=== PATIENT | female | born 1965 | race Caucasian/White ===

== ENCOUNTER → 2018-04-02 16:16 | Outpatient (CLI) | payer OTHER, SELFPAY ==
--- NOTE | 2018-04-02 16:20 | VDLE_ITS ---
Reason For Study: LLE swelling RIGHT LEFT CFV is compressible, spontaneous, phasic, GSV is normal. competent and demonstrates normal CFV is compressible, spontaneous, phasic, augmentation. competent, and demonstrates normal Procedure augmentation. Exam performed in department. FV is compressible, spontaneous, phasic, The exam was diagnostic. competent and demonstrates normal A preliminary report was called and/or faxed augmentation. to Ene MALLOYC @ 4:40 pm @ POP V is compressible, spontaneous, phasic, . competent and demonstrates normal augmentation. T/P Trunk is compressible. PTV is compressible. LT PerV is compressible. Interpretation Summary Deep veins of the left lower extremity are patent and compressible segmentally. There is no evidence of left lower extremity deep vein thrombosis. Valvular competence appears intact within the proximal deep venous system on the left . The left greater saphenous vein appears patent and compressible segmentally. Ordering Physician: BRYAN Mckeon Referring Physician: Bette Cho Performed By: Sera Elliott, EUGENIA, RVT
== END ==
PROVIDERS: Family Provider Internal Medicine; PCP Internal Medicine; Visit Provider Nurse Practitioner Gerontology
DX: M79.89 Other specified soft tissue disorders (principal)
CPT/HCPCS: 93971

== ENCOUNTER → 2018-04-27 07:32 | Outpatient (CLI) | payer OTHER, SELFPAY ==
--- NOTE | 2018-04-27 07:32 | DT_ITS ---
This patient was seen during an EMR downtime April 23, 2018 - April 30, 2018. This patient may have a combination of paper and electronic documentation or all paper documentation. All documentation is viewable within the e-chart portion of [employer] for each patient visit.
--- NOTE | 2018-04-27 07:45 | MRI_ITS ---
STUDY: MRI LOWER EXTREMITY LEFT TIBIA/FIBULA WITH AND WITHOUT CONTRAST REASON FOR EXAM: Female, 52 years old. Swelling and pain. Area of redness. TECHNIQUE: Standardized fat and water weighted pulse sequences were obtained in all 3 orthogonal planes, post contrast administration. 10 ml of Gadavist contrast material was administered intravenously for the contrast portion of the examination. COMPARISON: None. FINDINGS: Normal tibia and fibula, without a periosteal, cortical or cancellous marrow abnormality. Normal anterior, lateral, and posterior calf compartments, with normal muscles, crural fascia and intermuscular septa. There is subcutaneous edema of the lower leg. No abscess. There is no solid, cystic or lipomatous mass lesion of the subcutis adipose space. There is no abnormal contrast enhancement. MRI/Lower Ext No Joint W/WO Cont IMPRESSION: Subcutaneous edema. No MRI evidence of osteomyelitis. No fracture. Electronically Signed: Billy Diaz MD at 23:54 EDT , Service support ,
== END ==
PROVIDERS: Family Provider Internal Medicine; PCP Internal Medicine; Visit Provider Internal Medicine
DX: M79.605 Pain in left leg (principal)
CPT/HCPCS: 73720; A9585

== ENCOUNTER → 2018-05-08 07:35 | Outpatient (CLI) | payer OTHER, SELFPAY ==
--- NOTE | 2018-05-08 07:39 | NM_ITS ---
CLINICAL: 52-year-old female with reported history of pain and swelling of the left lower extremity. LIMITED 99m Tc MDP THREE PHASE BONE SCINTIGRAPHY COMPARISON: MRI of the tibia-fibula report 04/27/2018 FINDINGS: Following the intravenous administration of 24.0 mCi of 99m Tc MDP, three-phase bone acquisitions of the bilateral distal lower extremities reveal: 1. The flow and immediate static blood pool acquisitions demonstrate symmetric, normal arterial and venous phase distribution of the radiopharmaceutical to the bilateral lower extremities. There is soft tissue edema involving the left lower extremity relative to the right. 2. Delayed images depict focal increased tracer concentration demonstrated in the patellofemoral compartments of both knees, bilateral ankles, the right-left mid-forefoot. 3. The remaining limited skeletal structures are scintigraphically unremarkable. NM/Bone Scan Three Phase IMPRESSION: 1. The increase in radiopharmaceutical concentration visualized in the bilateral knee and ankle articulations, right-left mid and forefoot is most consistent with degenerative arthritis. 2. Soft tissue edema is defined in the left lower extremity relative to the right. There is no definitive scintigraphic evidence of a soft tissue inflammatory process-cellulitis and or active infection of bone-osteomyelitis involving the left lower extremity on the current examination. Electronically Signed: Jozef Ernst DO at 15:32 EDT Tel , Service support ,
== END ==
PROVIDERS: Family Provider Internal Medicine; PCP Internal Medicine; Visit Provider Internal Medicine
DX: M79.605 Pain in left leg (principal)
CPT/HCPCS: 78315

== ENCOUNTER 2018-05-29 22:34 | Emergency (ER) | payer OTHER, SELFPAY ==
[2018-05-29 22:36] VITALS: BP 135/89; PULSE 71; RESP 18; TEMP 36.6; O2SAT 99; BMI 34.6
--- NOTE | 2018-05-30 01:02 | CT_ITS ---
STUDY: CT ABDOMEN AND PELVIS WITH CONTRAST REASON FOR EXAM: Female, 52 years old. Abdominal pain and left lower extremity edema. RADIATION DOSAGE (If Supplied By Facility): CTDIvol = ( 18.30 ) mGy, DLP = ( 1277.13 ) mGycm TECHNIQUE: Transaxial images were obtained from the dome of the diaphragm to the symphysis pubis without oral contrast. 100ml ml of Isovue 300 contrast was administered. Sagittal and coronal images were reconstructed. Individualized dose optimization techniques were used for this CT. COMPARISON: 08/22/2016. FINDINGS: The visualized lung bases are unremarkable. The visualized portions of the heart are within normal limits. Normal liver. Normal gallbladder and extrahepatic biliary system. Normal spleen. Normal pancreas. Normal bilateral adrenal glands. There again are bilateral renal cysts larger on the left side. There is no evidence of hydronephrosis. Normal visualized stomach. The small bowel loops are normal in caliber. There is fecal retention. There is mild diverticulosis of the sigmoid colon. There is no evidence of acute diverticulitis. There is non-visualization of the appendix. Normal abdominal aorta. Normal inferior vena cava. Normal retroperitoneum. Normal urinary bladder. The uterus is retroverted. There is a small cyst in the right adnexa measuring about 2 cm. There is a small umbilical hernia containing fat. There are degenerative changes in the lower lumbar spine. There is minimal anterolisthesis of L4 over L5 and narrowing of L4-L5 and L5-S1 disc spaces. CT/Abdomen/Pelvis W IV Cont ONLY IMPRESSION: No demonstrated acute process. Bilateral renal cysts. Mild diverticulosis without evidence for acute diverticulitis. Electronically Signed: Avila Rivera MD at 2:21 EDT Tel , Service support ,
[2018-05-30] MEDS: Ketorolac 15 MG/ML Vial IV (01:24)
[2018-05-30 01:25] LABS: Absolute Lymphocyte Count 2.64 X10^3/ul (0.83-4.51); Absolute Neutrophil Count 2.8 X10^3/uL (2.0-7.7); Basophil# 0.03 X10^3/uL; Basophil% 0.5 % (0-1); Eosinophil# 0.14 X10^3/uL; Eosinophils% 2.3 % (0-5); Hemoglobin 13.1 g/dl (12.0-15.0); Lymphocyte # 2.64 X10^3/ul (4.0); Lymphocyte % 42.6 % (19-41); Mean Corp Hgb Conc 34.5 g/gl (32-36); Mean Corpuscular Hgb 31.3 pg (27.0-32.0); Mean Corpuscular Volume 90.9 fL (81-99); Mean Platelet Vol. 10.6 fl (6.2-12.0); Monocyte% 9.7 % (0-10); Neutrophil # 2.78 X10^3/uL (2.7-7.7); Neutrophil % 44.7 % (47-70); Platelet Count 213 K/mm3 (150-450); RBC Distribution Width CV 13.5 % (11.6-14.6); RBC Distribution Width SD 44.6 fl (35.1-43.9); Red Blood Count 4.18 M/mm3 (4.2-5.4); White Blood Count 6.2 K/mm3 (4.4-11.0)
[2018-05-30 01:28] LABS: POSITIVE COUNT NO; POSITIVE DIFFERENTIAL NO; POSITIVE MORPHOLOGY NO
[2018-05-30 01:43] LABS: Anion Gap 8 (5-15); BUN 15 mg/dL (7-18); BUN/Creat Ratio 18.1 RATIO (10-20); Calcium,Total 9.2 mg/dL (8.5-10.1); Chloride 107 mmol/L (98-107); Creatinine, Serum 0.83 mg/dL (0.55-1.02); EST Glomerular Filtration Rate 76 mL/min (>60); Est Glom Filt Rate - Afr Amer 92 mL/min (>60); Estimated Creatinine Clearance 69.72 ml/min; Glucose 93 mg/dL (74-106); Potassium 3.8 mmol/L (3.5-5.1); Sodium Level 141 mmol/L (136-145)
--- NOTE | 2018-05-30 02:58 | ED.VISSUMM ---
- ER Visit Summary Date of Service: 05/30/18 Chief Complaint: Left leg pain History of Present Illness: The patient is a 52 F presenting for evaluation secondary left leg pain. Patient reports that she has been having left leg pain over the course of the last 5 months. Patient states that this was not associated with any sort of specific injury, and states that the pain is continuous and is associated with worsening with activity standing caffeine and palpation. Patient has undergone a extensive workup by her primary care physician for this. She has undergone MRI of the leg, bone scan, and Doppler ultrasounds of both the venous and arterial systems and are found to be negative. Patient states that the pain was giving her enough difficulty was sleeping tonight she wanted to come for evaluation. Patient reports that she was referred to pain management, but prefers to go to a homeopathic physician prior to doing a pain management consultation. Physical Examination: Physical exam unremarkable except for examination the left lower extremity. Normal range of motion at the hip and knee, some limited range of motion at the ankle. There is edema going from the knee all the way down to the foot with some erythema over the anterior portion of the collado and the foot. Tenderness to palpation even to extremely light touch going from the knee down to the ankle, but not including the foot. 1+ DP and PT pulses that are bilaterally symmetric, compartments are soft. Test Results: CBC and chemistry unremarkable, CT abdomen and pelvis with IV contrast shows no evidence of large masses, does demonstrate a ovarian cyst that seems stable from a prior ultrasound Emergency Department Course and Treatment: Patient presented secondary to persistent leg pain. Patient has already had ruled out bony etiology, infection, or vascular etiology. I considered the possibility that this was caused by lymphatic obstruction due to tumor proximally so CT was performed this was negative. Patient at this point potentially has an element of complex regional pain syndrome. I had an extensive conversation with patient about medications versus other treatment. I will start the patient on a course of gabapentin she is going to follow-up with a homeopathic physician followed by a paint department supervisor. Patient was discharged in stable condition. Disposition: Discharge Impression: 1. Left leg pain, possible complex regional pain syndrome This note was generated with [employer] dictation software. It may contain incorrect words, spelling, and punctuation that were not noted in review of the chart prior to signing ED Disposition - Plan for ED Patient: Disposition: Home or Assisted Living Chief Complaint: Lower Extremity Injury Diagnosis: Complex regional pain syndrome Instructions: What Is Reflex Sympathetic Dystrophy? Prescriptions: Gabapentin [Neurontin] 300 mg PO TID #90 cap Referrals: Bette Cho DO [Primary Care Provider] - 1-2 Weeks
--- NOTE | 2018-05-30 03:02 | ED.DCSUM_ITS ---
- ER Visit Summary Date of Service: 05/30/18 Chief Complaint: Left leg pain History of Present Illness: The patient is a 52 F presenting for evaluation secondary left leg pain. Patient reports that she has been having left leg pain over the course of the last 5 months. Patient states that this was not associated with any sort of specific injury, and states that the pain is continuous and is associated with worsening with activity standing caffeine and palpation. Patient has undergone a extensive workup by her primary care physician for this. She has undergone MRI of the leg, bone scan, and Doppler ultrasounds of both the venous and arterial systems and are found to be negative. Patient states that the pain was giving her enough difficulty was sleeping tonight she wanted to come for evaluation. Patient reports that she was referred to pain management, but prefers to go to a homeopathic physician prior to doing a pain management consultation. Physical Examination: Physical exam unremarkable except for examination the left lower extremity. Normal range of motion at the hip and knee, some limited range of motion at the ankle. There is edema going from the knee all the way down to the foot with some erythema over the anterior portion of the collado and the foot. Tenderness to palpation even to extremely light touch going from the knee down to the ankle, but not including the foot. 1+ DP and PT pulses that are bilaterally symmetric, compartments are soft. Test Results: CBC and chemistry unremarkable, CT abdomen and pelvis with IV contrast shows no evidence of large masses, does demonstrate a ovarian cyst that seems stable from a prior ultrasound Emergency Department Course and Treatment: Patient presented secondary to persistent leg pain. Patient has already had ruled out bony etiology, infection , or vascular etiology. I considered the possibility that this was caused by lymphatic obstruction due to tumor proximally so CT was performed this was negative. Patient at this point potentially has an element of complex regional pain syndrome. I had an extensive conversation with patient about medications versus other treatment. I will start the patient on a course of gabapentin she is going to follow-up with a homeopathic physician followed by a paint mixer machine. Patient was discharged in stable condition. Disposition: Discharge Impression: 1. Left leg pain, possible complex regional pain syndrome This note was generated with [employer] dictation software. It may contain incorrect words, spelling, and punctuation that were not noted in review of the chart prior to signing ED Disposition - Plan for ED Patient: Disposition: Home or Assisted Living Chief Complaint: Lower Extremity Injury Diagnosis: Complex regional pain syndrome Instructions: What Is Reflex Sympathetic Dystrophy? Prescriptions: Gabapentin [Neurontin] 300 mg PO TID #90 cap Referrals: Bette Cho DO [Primary Care Provider] - 1-2 Weeks
[2018-05-30 03:19] VITALS: PULSE 81; RESP 20; O2SAT 98
--- NOTE | 2018-05-30 03:20 | ED.RN ---
THIS NURSE REVIEWED D/C INSTRUCTIONS WITH PT. PT VERBALIZED UNDERSTANDING OF INSTRUCTIONS. IV D/C. IV CATHETER INTACT. PT TOLERATED WELL. PT DENIES FURTHER NEEDS OR QUESTIONS AT THIS TIME. PT AMBULATES FROM ROOM ON OWN WITHOUT ASSISTANCE FROM STAFF
== END 2018-05-30 03:22 | disposition home or self-care (01) ==
PROVIDERS: Emergency Provider Emergency Medicine; Family Provider Internal Medicine; PCP Internal Medicine
DX: M79.605 Pain in left leg (principal); R20.2 Paresthesia of skin
CPT/HCPCS: 74177; 80048; 85025; 96374; 99283; Q9967; A4216

== ENCOUNTER → 2023-06-02 | Outpatient (CLI) | payer OTHER, SELFPAY ==
[2023-06-02 17:54] LABS: Absolute Lymphocyte Count 2.01 X10^3/uL (0.83-4.51); Absolute Neutrophil Count 3.1 X10^3/uL (2.0-7.7); Basophil# 0.07 X10^3/uL; Basophil% 1.2 % (0-1); Eosinophil# 0.21 X10^3/uL; Eosinophils% 3.6 % (0-5); Hematocrit 40.2 % (37-47); Lymphocyte # 2.01 X10^3/ul (0.83-4.51); Lymphocyte % 34.3 % (19-41); Mean Corp Hgb Conc 32.3 g/dL (32-36); Mean Corpuscular Volume 92.8 fL (81-99); Mean Platelet Vol. 10.9 fl (6.2-12.0); Monocyte# 0.44 X10^3/uL; Monocyte% 7.5 % (0-10); NRBC Flagged by Analyzer 0 % (0-5); Neutrophil # 3.12 X10^3/uL (2.7-7.7); Neutrophil % 53.2 % (47-70); Platelet Count 261 K/mm3 (150-450); RBC Distribution Width CV 13.2 % (11.6-14.6); RBC Distribution Width SD 44.7 fl (35.1-43.9); Red Blood Count 4.33 M/mm3 (4.2-5.4); White Blood Count 5.9 K/mm3 (4.4-11.0)
[2023-06-02 18:13] LABS: ALB/GLOB Ratio 1.1 RATIO (0.9-2.4); AST(SGOT) 23 U/L (15-37); Alanine Aminotransfer ALT/SGPT 28 U/L (13-56); Albumin, Serum 3.8 g/dL (3.2-5.0); Alkaline Phosphatase 116 U/L (45-117); Anion Gap 3 (5-15); BUN 12 mg/dL (7-18); BUN/Creat Ratio 14.5 RATIO (10-20); Calcium,Total 9.1 mg/dL (8.5-10.1); Chloride 110 mmol/L (98-107); Cholesterol 167 mg/dL (200); Creatinine, Serum 0.83 mg/dL (0.55-1.02); EST Glomerular Filtration Rate 75 mL/min (>60); Est Glom Filt Rate - Afr Amer 90 mL/min (>60); Globulin 3.6 g/dL (2.2-4.2); Glucose 88 mg/dL (74-106); High Density Lipoprotein 56 mg/dL; Potassium 3.7 mmol/L (3.5-5.1); Protein, Total 7.4 g/dL (6.4-8.2); Sodium Level 141 mmol/L (136-145); Thyroid Stim Hormone (TSH) 1.57 uIU/mL (0.358-3.74); Triglycerides 89 mg/dL; Very Low Density Lipoprotein 18 mg/dL (5-40)
[2023-06-02 18:16] LABS: Vitamin D,25 Hydroxy 50.2 ng/mL
== END | disposition home or self-care (01) ==
LOC: MTLAB 15:57
PROVIDERS: PCP Family Medicine; Referring Provider Family Medicine; Visit Provider Family Medicine
DX: R60.9 Edema, unspecified (principal)
CPT/HCPCS: 36415; 80053; 80061; 82306; 84443; 85025

== ENCOUNTER → 2025-05-02 | Outpatient (CLI) | payer OTHER, SELFPAY ==
[2025-05-07 17:08] LABS: Alternaria alternata <0.10 kU/L (Class 0); Aspergillus fumigatus <0.10 kU/L (Class 0); Bahia Grass <0.10 kU/L (Class 0); Bermuda Grass <0.10 kU/L (Class 0); Bluegrass, Kentucky <0.10 kU/L (Class 0); Cat Hair/Dander, Standard <0.10 kU/L (Class 0); Cedar, Mountain <0.10 kU/L (Class 0); Cladosporium herbarum <0.10 kU/L (Class 0); Cockroach, American <0.10 kU/L (Class 0); D farinae Mite <0.10 kU/L (Class 0); D pteronyssinus <0.10 kU/L (Class 0); Dog Epithelia <0.10 kU/L (Class 0); Elm, American White <0.10 kU/L (Class 0); Hazelnut Tree <0.10 kU/L (Class 0); Hickory, White <0.10 kU/L (Class 0); Johnson Grass <0.10 kU/L (Class 0); Maple/Box Elder <0.10 kU/L (Class 0); Mucor racemosus <0.10 kU/L (Class 0); Mugwort <0.10 kU/L (Class 0); Mulberry, White <0.10 kU/L (Class 0); Nettle <0.10 kU/L (Class 0); Oak, White <0.10 kU/L (Class 0); Penicillium chrysogen <0.10 kU/L (Class 0); Pigweed, Rough <0.10 kU/L (Class 0); Plantain, English <0.10 kU/L (Class 0); Ragweed, Short/Common <0.10 kU/L (Class 0); Sheep Sorrel(Dock) <0.10 kU/L (Class 0); Stemphylium herbarum <0.10 kU/L (Class 0); Sweet Gum <0.10 kU/L (Class 0); Sycamore, American <0.10 kU/L (Class 0)
== END | disposition home or self-care (01) ==
LOC: LAB 17:14
PROVIDERS: PCP Family Medicine; Referring Provider Family Medicine; Visit Provider Family Medicine
DX: L20.9 Atopic dermatitis, unspecified (principal)
CPT/HCPCS: 36415; 86003

== ENCOUNTER → 2025-07-05 | Outpatient (CLI) | payer OTHER, SELFPAY ==
--- OUTSIDE RECORDS SUMMARY | 2025-07-05 09:58 | XMS RPT_ITS | CCD ---
Author Organization [facility] Inform ion Partnership [facility] Care Team Providers Care Teaching Aide Name Role Phone Luke Tavares MD Primary Care Provider [phone] Luke Tavares MD Attending Provider [phone] Luke Tavares MD Referring Provider Luke Tavares Referring Unavailable Luke Tavares Attending Unavailable Luke Tavares Primary Care Unavailable Luke Tavares Primary Care Unavailable Shanna Huff Attending Unavailable Luke Tavares Referring Unavailable Allergies Allergy Classification Reported Allergen(s) Allergy Type Date of Onset Reaction(s) Facility (2 sources) Tetracycline Drug Allergy 05-29-2018 Nausea [facility] (1 source) Tetracycline Drug Allergy 05-29-2018 [facility] Repository Medications Current Medications Medication Drug Class(es) Dates Sig (Normalized) Sig (Original) gabapentin 300 mg oral capsule (2 sources) Anti-epileptic Agent Start: 05-30-2018 Gabapentin 300 MG capsule Active 300 mg PO THREE TIMES A DAY 90 May 30, 2018 12:00am Start 1 capsule on day one, then 1 capsule BID day 2, then 1 capsule TID day. Continue on 1 capsule TID Problems Problem Classification Problem Date Documented Da te Episodic/Chronic Allergic reactions (1 source) Atopic dermatitis, unspecified; Translations: [Atopic dermatitis, unspecified] Onset: 05-08-2025 Chronic Other nervous system disorders (2 sources) Complex regional pain syndrome; Translations: [Complex regional pain syndrome] 05-31-2018 Chronic Results Test Name Value Interpretation Reference Range Facility Allergens, Zone 8on 05-07-20 25 A. ALTERNATA <0.10 Normal Class 0 [facility] Comment on above: Order Comment: Test( s) 336269-S161-SyN Cockroach, Hungarian; 877294- U034-JdR Deaf Smith, White; 790888-F812-HkS Sweet Gum were developed and had performance characteristics determined by [facility]. These tests have not been cleared or approved by the U.S. Food and Drug Administration. The FDA has determined that such clearance or approval is not necessary. These tests are used for clinical purposes. These should not be regarded as investigational or for research. Performed By: #### L 5500.0600 #### [facility] [address] [place], [address] ASPERGILLUS FUM <0.10 Normal Class 0 [facility] Comment on above: Order Comment: Test( s) 040955-Z062-OnV Cockroach, Hungarian; 970748- J765-HbG Deaf [place], White; 818199-A380-XxN Sweet Gum were developed and had performance characteristics determined by [facility]. These tests have not been cleared or approved by the U.S. Food and Drug Administration. The FDA has determined that such clearance or approval is not necessary. These tests are used for clinical purposes. These should not be regarded as investigational or for research. Performed By: #### L 5500.0600 #### [facility] [address] [place], [address] BAHIA GRASS <0.10 Normal Class 0 [facility] Comment on above: Order Comment: Test( s) 936749-S277-TkO Cockroach, Hungarian; 831290- G187-RhM Deaf [place], White; 114757-S416-VlM Sweet Gum were developed and had performance characteristics determined by [facility]. These tests have not been cleared or approved by the U.S. Food and Drug Administration. The FDA has determined that such clearance or approval is not necessary. These tests are used for clinical purposes. These should not be regarded as investigational or for research. Performed By: #### L 5500.0600 #### [facility] [address] [place], [address] BERMUDA GRASS <0.10 Normal Class 0 [facility] Comment on above: Order Comment: Test( s) 428071-D755-WpI Cockroach, Hungarian; 913556- X289-IxN Deaf [place], White; 120575-B194-OyS Sweet Gum were developed and had performance characteristics determined by [facility]. These tests have not been cleared or approved by the U.S. Food and Drug Administration. The FDA has determined that such clearance or approval is not necessary. These tests are used for clinical purposes. These should not be regarded as investigational or for research. Performed By: #### L 5500.0600 #### [facility] [address] [place], [address] BL[place], [place] <0.10 Normal Class 0 [facility] Comment on above: Order Comment: Test( s) 682462-V755-GtG Cockroach, Hungarian; 085435- Z518-VqK Deaf Smith, White; 709152-Q266-GwT Sweet Gum were developed and had performance characteristics determined by [facility]. These tests have not been cleared or approved by the U.S. Food and Drug Administration. The FDA has determined that such clearance or approval is not necessary. These tests are used for clinical purposes. These should not be regarded as investigational or for research. Performed By: #### L 5500.0600 #### [facility] [address] [place], [address] CAT HAIR/DANDER <0.10 Normal Class 0 [facility] Comment on above: Order Comment: Test( s) 393481-U510-TaY Cockroach, Hungarian; 881551- X591-HjS Deaf [place], White; 777741-T214-QvX Sweet Gum were developed and had performance characteristics determined by [facility]. These tests have not been cleared or approved by the U.S. Food and Drug Administration. The FDA has determined that such clearance or approval is not necessary. These tests are used for clinical purposes. These should not be regarded as investigational or for research. Performed By: #### L 5500.0600 #### [facility] [address] [place], [address] CLADOSPOR HERB <0.10 Normal Class 0 [facility] Comment on above: Order Comment: Test( s) 930766-V168-CoP Cockroach, Hungarian; 073896- X070-TkT Deaf [place], White; 816112-E112-XeI Sweet Gum were developed and had performance characteristics determined by [facility]. These tests have not been cleared or approved by the U.S. Food and Drug Administration. The FDA has determined that such clearance or approval is not necessary. These tests are used for clinical purposes. These should not be regarded as investigational or for research. Performed By: #### L 5500.0600 #### [facility] [address] [place], [place], [id number] COCKROACH,AMER <0.10 Normal Class 0 [facility] Comment on above: Order Comment: Test( s) 044401-T160-HwZ Cockroach, Hungarian; 262093- O565-KmR Deaf [place], White; 472084-H631-HrN Sweet Gum were developed and had performance characteristics determined by [facility]. These tests have not been cleared or approved by the U.S. Food and Drug Administration. The FDA has determined that such clearance or approval is not necessary. These tests are used for clinical purposes. These should not be regarded as investigational or for research. Performed By: #### L 5500.0600 #### [facility] [address] [place], [place], [id number] COMMENT Comment Normal . [facility] Comment on above: Order Comment: Test( s) 225844-N499-WiH Cockroach, Hungarian; 133724- D974-WnM Deaf Smith, White; 779600-T368-DxR Sweet Gum were developed and had performance characteristics determined by [facility]. These tests have not been cleared or approved by the U.S. Food and Drug Administration. The FDA has determined that such clearance or approval is not necessary. These tests are used for clinical purposes. These should not be regarded as investigational or for research. Result Comment: Chuyita holt of Specific IgE Class Description of Class ----- < 0.10 0 Negative 0.10 - 0.31 0/I Equivocal/Low 0.32 - 0.55 I Low 0.56 - 1.40 II Moderate 1.41 - 3.90 III High 3.91 - 19.00 IV Very High 19.01 - 100.00 V Very High >100.00 Very High Performed By: #### L 5500.0600 #### [facility] [address] [place], [place], [id number] (647) D FARINAE MITE <0.10 Normal Class 0 [facility] Comment on above: Order Comment: Test( s) 744956-Y896-OnD Cockroach, Hungarian; 030984- F068-ZtY Deaf [place], White; 992275-W789-IcL Sweet Gum were developed and had performance characteristics determined by [facility]. These tests have not been cleared or approved by the U.S. Food and Drug Administration. The FDA has determined that such clearance or approval is not necessary. These tests are used for clinical purposes. These should not be regarded as investigational or for research. Performed By: #### L 5500.0600 #### [facility] [address] [place], [address] (471) D PTERONYSSINUS <0.10 Normal Class 0 [facility] Comment on above: Order Comment: Test( s) 772437-H999-ZnG Cockroach, Hungarian; 653771- K219-BgX Deaf Smith, White; 330939-Y393-FyV Sweet Gum were developed and had performance characteristics determined by [facility]. These tests have not been cleared or approved by the U.S. Food and Drug Administration. The FDA has determined that such clearance or approval is not necessary. These tests are used for clinical purposes. These should not be regarded as investigational or for research. Performed By: #### L 5500.0600 #### [facility] [address] [place], [address] DOG EPITHELIA <0.10 Normal Class 0 [facility] Comment on above: Order Comment: Test( s) 079522-O273-PjU Cockroach, Hungarian; 591727- A914-JxX Deaf Smith, White; 026953-U278-RjE Sweet Gum were developed and had performance characteristics determined by [facility]. These tests have not been cleared or approved by the U.S. Food and Drug Administration. The FDA has determined that such clearance or approval is not necessary. These tests are used for clinical purposes. These should not be regarded as investigational or for research. Performed By: #### L 5500.0600 #### [facility] [address] [place], [address] ELM,AMER WHITE <0.10 Normal Class 0 [facility] Comment on above: Order Comment: Test( s) 338273-Y919-JrS Cockroach, Hungarian; 622710- W818-WrM Deaf Smith, White; 212956-G793-RsU Sweet Gum were developed and had performance characteristics determined by [facility]. These tests have not been cleared or approved by the U.S. Food and Drug Administration. The FDA has determined that such clearance or approval is not necessary. These tests are used for clinical purposes. These should not be regarded as investigational or for research. Performed By: #### L 5500.0600 #### [facility] [address] [place], [place], [id number] HAZELNUT TREE <0.10 Normal Class 0 [facility] Comment on above: Order Comment: Test( s) 114113-G516-AhR Cockroach, Hungarian; 855603- X490-JtP Deaf [place], White; 800636-E886-UnW Sweet Gum were developed and had performance characteristics determined by [facility]. These tests have not been cleared or approved by the U.S. Food and Drug Administration. The FDA has determined that such clearance or approval is not necessary. These tests are used for clinical purposes. These should not be regarded as investigational or for research. Performed By: #### L 5500.0600 #### [facility] [address] [place], [address] HICKORY, WHITE <0.10 Normal Class 0 [facility] Comment on above: Order Comment: Test( s) 860928-W513-ZmW Cockroach, Hungarian; 358871- M969-OmA Deaf Smith, White; 226992-Z614-ZeW Sweet Gum were developed and had performance characteristics determined by [facility]. These tests have not been cleared or approved by the U.S. Food and Drug Administration. The FDA has determined that such clearance or approval is not necessary. These tests are used for clinical purposes. These should not be regarded as investigational or for research. Performed By: #### L 5500.0600 #### [facility] [address] [place], [place], [id number] (737) DEREK GRASS <0.10 Normal Class 0 [facility] Comment on above: Order Comment: Test( s) 841108-I696-UrF Cockroach, Hungarian; 149913- G584-IaX Deaf Smith, White; 046467-A107-ChI Sweet Gum were developed and had performance characteristics determined by [facility]. These tests have not been cleared or approved by the U.S. Food and Drug Administration. The FDA has determined that such clearance or approval is not necessary. These tests are used for clinical purposes. These should not be regarded as investigational or for research. Performed By: #### L 5500.0600 #### [facility] [address] [place], [place], [id number] MAPLE/BOX ELDER <0.10 Normal Class 0 [facility] Comment on above: Order Comment: Test( s) 471407-B316-ZyK Cockroach, Hungarian; 051786- E475-HbD Deaf Smith, White; 414597-A952-HrQ Sweet Gum were developed and had performance characteristics determined by [facility]. These tests have not been cleared or approved by the U.S. Food and Drug Administration. The FDA has determined that such clearance or approval is not necessary. These tests are used for clinical purposes. These should not be regarded as investigational or for research. Performed By: #### L 5500.0600 #### [facility] [address] [place], [address] MOUNTAIN CEDAR <0.10 Normal Class 0 [facility] Comment on above: Order Comment: Test( s) 284270-N532-QzD Cockroach, Hungarian; 692611- O735-OcM Deaf Smith, White; 012819-D583-BvD Sweet Gum were developed and had performance characteristics determined by [facility]. These tests have not been cleared or approved by the U.S. Food and Drug Administration. The FDA has determined that such clearance or approval is not necessary. These tests are used for clinical purposes. These should not be regarded as investigational or for research. Performed By: #### L 5500.0600 #### [facility] [address] [facility] [address] MUCOR RACEMOSUS <0.10 Normal Class 0 [facility] Comment on above: Order Comment: Test( s) 354451-I311-HpY Cockroach, Hungarian; 876047- F200-YgR Deaf [place], White; 925158-B573-GgU Sweet Gum were developed and had performance characteristics determined by [facility]. These tests have not been cleared or approved by the U.S. Food and Drug Administration. The FDA has determined that such clearance or approval is not necessary. These tests are used for clinical purposes. These should not be regarded as investigational or for research. Performed By: #### L 0.0600 #### [facility] [address] [place], [address] MUGWORT <0.10 Normal Class 0 [facility] Comment on above: Order Comment: Test( s) 260499-F748-OsN Cockroach, Hungarian; 516373- J915-QcB Deaf [place], White; 687774-E545-TwD Sweet Gum were developed and had performance characteristics determined by [facility]. These tests have not been cleared or approved by the U.S. Food and Drug Administration. The FDA has determined that such clearance or approval is not necessary. These tests are used for clinical purposes. These should not be regarded as investigational or for research. Performed By: #### L 0.0600 #### [facility] [address] [place], [place], [address] MULBERRY, WHITE <0.10 Normal Class 0 [facility] Comment on above: Order Comment: Test( s) 099878-R485-WvY Cockroach, Hungarian; 795419- B177-TgA Deaf Smith, White; 764070-R869-BhG Sweet Gum were developed and had performance characteristics determined by [facility]. These tests have not been cleared or approved by the U.S. Food and Drug Administration. The FDA has determined that such clearance or approval is not necessary. These tests are used for clinical purposes. These should not be regarded as investigational or for research. Performed By: #### L 5500.0600 #### [facility] [address] [facility] [place], [address] NETTLE <0.10 Normal Class 0 [facility] Comment on above: Order Comment: Test( s) 390593-C934-AkY Cockroach, Hungarian; 879011- Y256-AbD Deaf Smith, White; 363610-J043-IvD Sweet Gum were developed and had performance characteristics determined by [facility]. These tests have not been cleared or approved by the U.S. Food and Drug Administration. The FDA has determined that such clearance or approval is not necessary. These tests are used for clinical purposes. These should not be regarded as investigational or for research. Result Comment: Perf ormed at: [facility] [id number] Operating Room Tech: Diane Guillen MD, Phone: [phone] Performed By: #### L 5500.0600 #### [facility] [address] [place], [place], [id number] OAK, WHITE <0.10 Normal Class 0 [facility] Comment on above: Order Comment: Test( s) 283694-V539-ZrG Cockroach, Hungarian; 088111- Y702-KvT Deaf Smith, White; 046875-N385-ZyE Sweet Gum were developed and had performance characteristics determined by [facility]. These tests have not been cleared or approved by the U.S. Food and Drug Administration. The FDA has determined that such clearance or approval is not necessary. These tests are used for clinical purposes. These should not be regarded as investigational or for research. Performed By: #### L 5500.0600 #### [facility] [address] [place], [place], [id number] PEN CHRYSOGEN <0.10 Normal Class 0 [facility] Comment on above: Order Comment: Test( s) 834165-I227-SgP Cockroach, Hungarian; 830556- B833-LtC Deaf Smith, White; 121567-A016-CcQ Sweet Gum were developed and had performance characteristics determined by [facility]. These tests have not been cleared or approved by the U.S. Food and Drug Administration. The FDA has determined that such clearance or approval is not necessary. These tests are used for clinical purposes. These should not be regarded as investigational or for research. Performed By: #### L 5500.0600 #### [facility] [address] [place], [address] PIGWEED, ROUGH <0.10 Normal Class 0 [facility] Comment on above: Order Comment: Test( s) 763883-I534-QcI Cockroach, Hungarian; 663884- W255-QuV Deaf Smith, White; 441513-K921-ZdE Sweet Gum were developed and had performance characteristics determined by [facility]. These tests have not been cleared or approved by the U.S. Food and Drug Administration. The FDA has determined that such clearance or approval is not necessary. These tests are used for clinical purposes. These should not be regarded as investigational or for research. Performed By: #### L 5500.0600 #### [facility] [address] [place], [address] PLANTAIN,ENGLSH <0.10 Normal Class 0 [facility] Comment on above: Order Comment: Test( s) 605827-P150-OtY Cockroach, Hungarian; 765575- X808-HyO Deaf Smith, White; 876393-Q265-RlW Sweet Gum were developed and had performance characteristics determined by [facility]. These tests have not been cleared or approved by the U.S. Food and Drug Administration. The FDA has determined that such clearance or approval is not necessary. These tests are used for clinical purposes. These should not be regarded as investigational or for research. Performed By: #### L 5500.0600 #### [facility] [address] [place], [address] RAGWEED SH/COM <0.10 Normal Class 0 [facility] Comment on above: Order Comment: Test( s) 753271-O498-YpR Cockroach, Hungarian; 731028- U391-XlC Deaf Smith, White; 756268-S198-UaE Sweet Gum were developed and had performance characteristics determined by [facility]. These tests have not been cleared or approved by the U.S. Food and Drug Administration. The FDA has determined that such clearance or approval is not necessary. These tests are used for clinical purposes. These should not be regarded as investigational or for research. Performed By: #### L 5500.0600 #### [facility] [address] [place], [address] SHEEP SORREL <0.10 Normal Class 0 [facility] Comment on above: Order Comment: Test( s) 715401-G553-NmA Cockroach, Hungarian; 686386- J484-PvG Deaf Smith, White; 243023-E496-AeQ Sweet Gum were developed and had performance characteristics determined by [facility]. These tests have not been cleared or approved by the U.S. Food and Drug Administration. The FDA has determined that such clearance or approval is not necessary. These tests are used for clinical purposes. These should not be regarded as investigational or for research. Performed By: #### L 5500.0600 #### [facility] [address] [place], [address] STEMPHYLIUM HER <0.10 Normal Class 0 [facility] Comment on above: Order Comment: Test( s) 555722-X861-CnQ Cockroach, Hungarian; 465200- L839-FiC Deaf [place], White; 215371-E341-UvB Sweet Gum were developed and had performance characteristics determined by [facility]. These tests have not been cleared or approved by the U.S. Food and Drug Administration. The FDA has determined that such clearance or approval is not necessary. These tests are used for clinical purposes. These should not be regarded as investigational or for research. Performed By: #### L 5500.0600 #### [facility] [address] [place], [address] SWEET GUM <0.10 Normal Class 0 [facility] Comment on above: Order Comment: Test( s) 158779-I446-TfW Cockroach, Hungarian; 664047- A335-JgI Deaf [place], White; 628597-C009-TbF Sweet Gum were developed and had performance characteristics determined by [facility]. These tests have not been cleared or approved by the U.S. Food and Drug Administration. The FDA has determined that such clearance or approval is not necessary. These tests are used for clinical purposes. These should not be regarded as investigational or for research. Performed By: #### L 5500.0600 #### [facility] [address] [place], [place], [id number] SYCAMORE, AMER <0.10 Normal Class 0 [facility] Comment on above: Order Comment: Test( s) 800008-I397-GvT Cockroach, Hungarian; 417210- Y716-MnQ Deaf Smith, White; 755264-L366-YpF Sweet Gum were developed and had performance characteristics determined by [facility]. These tests have not been cleared or approved by the U.S. Food and Drug Administration. The FDA has determined that such clearance or approval is not necessary. These tests are used for clinical purposes. These should not be regarded as investigational or for research. Performed By: #### L 5500.0600 #### [facility] [address] [facility] [place], [address] Laboratory - Miscellaneous t estsOrdered By: Luke Tavares on 05-02-2025 Service comment (Unsp spec) [Interp] Comment . [facility] Comment on above: Levels of Specific I gE Class Description of Class ----- < 0.10 0 Negative 0.10 - 0.31 0/I Equivocal/Low 0.32 - 0.55 I Low 0.56 - 1.40 II Moderate 1.41 - 3.90 III High 3.91 - 19.00 IV Very High 19.01 - 100.00 V Very High >100.00 Very High Serum Bermuda grass IgE anti body assay (units/volume)Ordered By: Luke Tavares on 05-02-2025 Bermuda grass IgE Qn (S) <0.10 kU/L Class 0 [facility] Serum Cladosporium herbarum IgE antibody assay (units/volume)Ordered By: Luke Anusha on 05-02-2025 C. herbarum IgE Qn (S) <0.10 kU/L Class 0 [facility] Serum house dust mi te IgE antibody assay (units/volume)Ordered By: Luke Tavares on 05-02-2025 house dust mite IgE Qn (S) <0.10 kU/L Class 0 [facility] Serum Derek grass IgE anti body assay (units/volume)Ordered By: Luke Tavares on 05-02-2025 Derek grass IgE Qn (S) <0.10 kU/L Class 0 [facility] Serum [place] blue grass Ig E antibody assay (units/volume)Ordered By: Luke Anusha on 05-02-2025 [facility] blue [facility] IgE Qn (S) <0.10 kU/L Class 0 [facility] Serum Morus alba IgE antibod y assay (units/volume)Ordered By: Luke Tavares on 05-02-2025 White mulberry IgE Qn (S) <0.10 kU/L Class 0 [facility] Serum Urtica dioica IgE anti body assay (units/volume)Ordered By: Luke Tavares on 05-02-2025 Nettle IgE Qn (S) <0.10 kU/L [facility] 0 [facility] Comment on above: Performed at: [address] [id number] Director: Diane Guillen MD, Phone: [phone] Serum bahia grass IgE antibo dy assay (units/volume)Ordered By: Luke Tavares on 05-02-2025 Bahia grass IgE Qn (S) <0.10 kU/L Class 0 [facility] Serum cat dander IgE antibod y assay (units/volume)Ordered By: Luke Tavares on 05-02-2025 Cat dander IgE Qn (S) <0.10 kU/L Class 0 [facility] Serum dog epithelium IgE ant ibody assay (units/volume)Ordered By: Luke Tavares on 05-02-2025 Dog epithelium IgE Qn (S) <0.10 kU/L Class 0 [facility] Serum hazelnut pollen IgE an tibody assay (units/volume)Ordered By: Luke Tavares on 05-02-2025 Hazelnut Pollen IgE Qn (S) <0.10 kU/L Class 0 [facility] Serum mountain cedar specifi c IgE antibody assayOrdered By: Luke Tavares on 05-02-2025 Mountain Juniper IgE Qn (S) <0.10 kU/L Class 0 [facility] Serum mugwort IgE antibody a ssay (units/volume)Ordered By: Luke Tavares on 05-02-2025 Mugwort IgE Qn (S) <0.10 kU/L Class 0 [facility] Serum sheep sorrel IgE antib jerica assay (units/volume)Ordered By: Luke Tavares on 05-02-2025 [place] IgE Qn (S) <0.10 kU/L Class 0 [facility] Serum white elm IgE antibody assay (units/volume)Ordered By: Luke Tavares on 05-02-2025 White Elm IgE Qn (S) <0.10 kU/L Class 0 [facility] Serum white oak IgE antibody assay (units/volume)Ordered By: Luke Tavares on 05-02-2025 Newman IgE Qn (S) <0.10 kU/L Class 0 [facility] Stemphylium herbarum IgE ser umOrdered By: Luke Tavares on 05-02-2025 Stemphylium botryosum IgE Qn (S) <0.10 kU/L Class 0 [facility] White hickory IgE serumOrder ed By: Luke Tavares on 05-02-2025 White [place] IgE Qn (S) <0.10 kU/L Class 0 [facility] Absolute lymphocyte countOrd ered By: Luke Tavares on 06-02-2023 Lymphocytes Auto (Unsp spec) [#/Vol] 2.01 10*3/uL 0.83-4.51 [facility] Basophil percentageOrdered B y: Luke Tavares on 06-02-2023 Basophils/100 WBC (Bld) 1.2 % 0-[address] [facility] Bilirubin [Mass/Vol] 0.90 mg/dL 0.20-1.00 [facility] Comment on above: For patients on eltr ombopag therapy, use of Dimension [place] TBIL is not recommended. Chloride [Moles/Vol] 110 mmol/L 98-107 [facility] Cholesterol [Mass/Vol] 167 mg/dL <200 [facility] Comment on above: <200 mg/dL Desirable 200-240 mg/dL Borderline >240 mg/dL High Risk Eosinophils/100 WBC (Bld) 3.6 % 0-5 [facility] Glucose [Mass/Vol] 88 mg/dL 74-106 [facility] Neutrophils (Bld) [#/Vol] 3.1 10*3/uL 2.0-7.7 [facility] Neutrophils/100 WBC (Bld) 53.2 % 47-70 [facility] Potassium [Moles/Vol] 3.7 mmol/L 3.5-5.1 [facility] Protein [Mass/Vol] 7.4 g/dL 6.4-8.2 [facility] Sodium [Moles/Vol] 141 mmol/L 136-145 [facility] Triglyceride [Mass/Vol] 89 mg/dL <[address] [facility] Comment on above: The drugs N-Acetylcy steine and Metamizole may falsely depress this assay.Serum Triglycerides Reference Interval Normal <150 mg/dL Borderline high 150 - 199 mg/dL High 200 - 499 mg/dL Very High > or = 500 mg/dL WBC (Bld) [#/Vol] 5.9 10*3/uL 4.4-11.0 [facility] Blood erythrocytes count (nu mber/volume)Ordered By: Luke Tavares on 06-02-2023 RBC (Bld) [#/Vol] 4.33 10*6/uL 4.2-5.4 [facility] Blood hemoglobin measurement (mass/volume)Ordered By: Luke Tavares on 06-02-2023 Hemoglobin (Bld) [Mass/Vol] 13.0 g/dL 12.0-15.0 [facility] Blood lymphocytes/100 leukoc ytesOrdered By: Luke Tavares on 06-02-2023 Lymphocytes/100 WBC (Bld) 34.3 % 19-41 [facility] Blood monocytes/100 leukocyt esOrdered By: Luke Tavares on 06-02-2023 Monocytes/100 WBC (Bld) 7.5 % 0-[address] [facility] Blood platelet mean volumeOr dered By: Luke Tavares on 06-02-2023 Platelet mean volume (Bld) [Entitic vol] 10.9 fL 6.2-12.0 [facility] Determination of erythrocyte mean corpuscular volume (MCV)Ordered By: Luke Tavares on 06-02-2023 MCV (RBC) [Entitic vol] 92.8 fL 81-[address] [facility] Hematocrit Auto (Bld) [Volum e fraction]Ordered By: Luke Tavares on 06-02-2023 Hematocrit (Bld) [Volume fraction] 40.2 % 37-47 [facility] Laboratory - Chemistry and C hemistry - challengeOrdered By: Luke Tavares on 06-02-2023 ALP [Catalytic activity/Vol] 116 U/L 45-117 [facility] ALT [Catalytic activity/Vol] 28 U/L 13-56 [facility] CO2 [Moles/Vol] 28.0 mmol/L 21.0-32.0 [facility] Globulin (S) [Mass/Vol] 3.6 g/dL 2.2-4.[address] [facility] Urea nitrogen/Creatinine [Mass ratio] 14.5 mg/mg 10-20 [facility] Laboratory - Hematology and Cell countsOrdered By: Luke Tavares on 06-02-2023 Erythrocyte distribution width (RBC) [Entitic vol] 44.7 fL 35.1-43.9 [facility] Erythrocyte distribution width (RBC) [Ratio] 13.2 % 11.6-14.6 [facility] Immature granulocytes/100 WBC (Bld) 0.200 % 0.0-0.9 [facility] Comment on above: IG% - Immature Granu locytes (promyelocytes, myelocytes and metamyelocytes) > 1% indicates that a LEFT SHIFT is Present. MCH (RBC) [Entitic mass] 30.0 pg 27.0-32.0 [facility] Nucleated RBC/100 WBC (Bld) [Ratio] 0 % 0-5 [facility] MCHC Auto (RBC) [Mass/Vol]Or dered By: Luke Tavares on 06-02-2023 MCHC (RBC) [Mass/Vol] 32.3 g/dL 32-36 [facility] No Panel InformationOrdered By: Luke Tavares on 06-02-2023 Estimated GFR (MDRD) Amer 90 mL/min >60 [facility] Comment on above: GFR Calc Estimated GFR (MDRD) Non-Af Amer 75 mL/min >60 [facility] Comment on above: Non- GFR Calc Thyroid Stimulating Hormone (TSH) 1.57 uIU/mL 0.358-3.74 [facility] Vitamin D 25-Hydroxy 50.2 ng/mL [facility] Comment on above: Vitamin D 25(OH) Sta tus Range Deficiency <20 ng/mL (50nmol/L) Insufficiency 20 - 30 ng/mL (50 - 75 nmol/L) Sufficiency 30 - 100 ng/mL (75 - 250 nmol/L) Toxicity >100 ng/mL (>250 nmol/L) Platelets bldOrdered By: Elsy Tavares on 06-02-2023 Platelets (Bld) [#/Vol] 261 10*3/uL 150-450 [facility] Serum or plasma albumin sandor urement (mass/volume)Ordered By: Luke Tavares on 06-02-2023 Albumin [Mass/Vol] 3.8 g/dL 3.2-5.0 [facility] Serum or plasma albumin/glob ulin mass ratioOrdered By: Luke Tavares on 06-02-2023 Albumin/Globulin [Mass ratio] 1.1 {ratio} 0.9-2.4 [facility] Serum or plasma calcium sandor urement (mass/volume)Ordered By: Luke Tavares on 06-02-2023 Calcium [Mass/Vol] 9.1 mg/dL 8.5-10.1 [facility] Serum or plasma cholesterol in HDL measurement (mass/volume)Ordered By: Luke Tavares on 06-02-2023 Cholesterol in HDL [Mass/Vol] 56 mg/dL >40 [facility] Comment on above: The drugs N-Acetylcy steine and Metamizole may falsely depress this assay. Reference Range HDL <40 mg/dL Low HDL Cholesterol HDL >or= 60 mg/dL High HDL Cholesterol Serum or plasma cholesterol in VLDL measurement (mass/volume)Ordered By: Luke Tavares on 06-02-2023 Cholesterol in VLDL [Mass/Vol] 18 mg/dL 5-40 [facility] Serum or plasma creatinine m easurement (mass/volume)Ordered By: Luke Tavares on 06-02-2023 Creatinine [Mass/Vol] 0.83 mg/dL 0.55-1.02 [facility] Comment on above: The validity of the calculated GFR & GFRAA in patients over 70 years has not been determined. Clinical correlation is essential. Serum or plasma low density lipoprotein (LDL) cholesterol measurement (mass/volume)Ordered By: Luke Tavares on 06-02-2023 Cholesterol in LDL [Mass/Vol] 93 mg/dL 0-130 [facility] Serum or plasma urea nitroge n measurement (mass/volume)Ordered By: Luke Tavares on 06-02-2023 Urea nitrogen [Mass/Vol] 12 mg/dL 7-18 [facility] Thin prep Papanicolaou smear with manual screeningOrdered By: Luke Tavares on 06-02-2023 Thin prep Papanicolaou smear with manual screening 23 U/L 15-37 [facility] Thin prep Papanicolaou smear with manual screening 3 5-15 [facility] Encounters Encounter Date Encounter Type Care Provider Facility Start: 07-03-2025 ambulatory Luke Tavares Facility:[facility] Start: 05-02-2025 End: 05-02-2025 ambulatory Luke Tavares MD Work Phone: [facility] Work Phone: Start: 05-02-2025 End: 05-02-[address] Luke Tavares MD -Laboratory Work Phone: Start: 05-02-2025 End: 05-02-2025 ambulatory Luke Tavares Facility:[facility] Start: 06-02-2023 End: 06-02-2023 ambulatory [facility] Work Phone: Start: 06-02-2023 End: 06-02-2023 Patient encounter procedure [facility]-Laboratory, [place] Work Phone: Procedures Date Procedure Procedure Detail Performing Clinician Start: 05-02-2025 Allergen spec ige qu al multiallergen screen Luke Tavares MD Work Phone: Start: 05-02-2025 Alternaria alternata GEOVANY Tavares MD Work Phone: Start: 05-02-2025 Hungarian cockroach RAST Luke Tavares MD Work Phone: Start: 05-02-2025 Aspergillus fumigatus CLAUDIAT Luke Tavares MD Work Phone: Start: 05-02-2025 Box elder RAST Luke han MD Work Phone: Start: 05-02-2025 Common ragweed RAST Elsy Tavares MD Work Phone: Start: 05-02-2025 House dust mite (Df) CLAUDIAT Luke Tavares MD Work Phone: Start: 05-02-2025 Mucor racemosus RAST Andre Tavares MD Work Phone: Start: 05-02-2025 Penicillium chrysoge num GEOVANY Tavares MD Work Phone: Start: 05-02-2025 Plantain (Tamazight) GEOVANY Tavares MD Work Phone: Start: 05-02-2025 Tree pollen GEOVANY Tavares MD Work Phone: Start: 06-13-2025 [place] pollen GEOVANY Tavares MD Work Phone: Payers Date Payer Category Payer Self-pay [id number] 2025 Unknown [id number] 2011 Unknown ANTHGOPI [id number] [id number] Unknown [employer] [id number] c [id number] Unknown [id number] Unknown [id number] Social History Date Type Detail Facility Start: 05-29-2018 Tobacco smoking stat [facility] Unknown if ever smoked [facility] Start: 1965 Sex Assigned At Female [facility]: [facility] Evaluation note Note Date & Type Note Facility Evaluation note No assessment information availa ble [facility] Work Phone: Reason for referral (narrative) Note Date & Type Note Facility Reason for referral (narrative) No reason for referral information available [facility] Work Phone: Advance Directives No Advanced Directives Records Found Advance Directive Response Recorded Date/ Time Living Will No May 29, 2018 11:28pm Power of Air Traffic Control Supervisor No May 29 11:28pm Chief Complaint and Reason for Visit Chief Complaint Admit Date INT LAB ORDER May 02, 2025 5:14 pm Summary Purpose Family History No Family History Records Found Additional Source Comments Care Teams (unrecognized sec tion and content) Team Status: Active Member Role Status Dates Dr. Bette Cho DO Family Provider Active Luke Tavares MD Primary Care Provider Active Team Status: Inactive Member Role Status Dates Luke Tavares MD Primary Care Provide r, Attending Provider, Referring Provider Active Team Status: Inactive Member Role Status Dates Luke Tavares MD Primary Care Provider Active St art: May 02, 2025 End: May 02, 2025 Luke Tavares MD Attending Provider Active Start : May 02, 2025 End: May 02, 2025 Luke Tavares MD Referring Provider Active Start : May 02, 2025 End: May 02, 2025 Goals (unrecognized section and content) Goals may be documented in a n alternate sectionGoals may be documented in an alternate section INFORMATION SOURCE (unrecogn ized section and content) DATE CREATED AUTHOR 07/03/2025 [facility] FOR RECORDS PERTAINING TO PATIENTS WHO ARE OR HAVE BEEN ENROLLED IN A CHEMICAL DEPENDENCY/SUBSTANCEABUSE PROGRAM, SOME INFORMATION MAY BE OMITTED. This clinical summary was aggregated from multiple sources. Caution should be exercised in using it in the provision of clinical care. This summary normalizes information from multiple sources, and as a consequence, information in this document may materially change the coding, format and clinical context of patient data. In addition, data may be omitted in some cases. CLINICAL DECISIONS SHOULD BE BASED ON THE PRIMARY CLINICAL RECORDS. [facility]. provides no warranty or guarantee of the accuracy or completeness of information in this document.
[2025-07-05 11:12] LABS: Anion Gap 11 (5-15); BUN 17 mg/dL (4-19); BUN/Creat Ratio 22.6 RATIO (10-20); Calcium,Total 9.4 mg/dL (7.6-11.0); Carbon Dioxide 26.3 mmol/L (21.0-32.0); Chloride 106 mmol/L (98-108); Glucose 90 mg/dL (70-99); Potassium 4.0 mmol/L (3.3-5.1)
== END | disposition home or self-care (01) ==
LOC: LAB 09:51
PROVIDERS: PCP Family Medicine; Referring Provider Family Medicine; Visit Provider Family Medicine
DX: I87.2 Venous insufficiency (chronic) (peripheral) (principal)
CPT/HCPCS: 36415; 80048

== ENCOUNTER 2025-07-17 09:15 | Outpatient (RCR) | payer OTHER, SELFPAY ==
[2025-07-03 10:19] VITALS: BP 159/94; PULSE 75; RESP 18; TEMP 35.9; BMI 31.8
--- NOTE | 2025-07-03 11:06 | HP.PCM_ITS ---
History of Present Illness Date of Service: 07/03/25 Chief Complaint: Chronic Leg Rash and Swelling History of Wound: Ms. Thornton is a 59-year-old referred to the wound center due to chronic predominantly left lower extremity drainage and swelling. She reports a history of chronic venous insufficiency status post vein stripping 2 years ago. Had seen a vascular surgeon in [place]. In November, noted increased redness, swelling and drainage. She was seen by her primary care physician and over the course of the months, has been prescribed prednisone, topical steroid and Lasix with minimal improvement. She states that she wears her compression on most days. Current compression pressure is 20 to 30 mmHg. Has had it for a while. 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 Denies any history of diabetes or tobacco use. Feels well otherwise. [facility] Medical History (Updated 07/03/25 @ 11:[address] Shanna Huff MD) Obesity (BMI 30-39.9) Chronic stasis dermatitis Ulcer of extremity due to chronic venous insufficiency Chronic venous insufficiency of lower extremity Home Medications Medication Instructions Recorded Last Taken Type furosemide 20 mg tablet 20 mg PO DAILY 07/03/25 Unkn own History Allergy/AdvReac Type Severity Reaction Status Date / Time tetracycline AdvReac Nausea Verified 05/29/18 22:35 Social History Smoking Status: Never smoker ROS Constitutional Constitutional: Denies anorexia, body ache(s), fatigue, fever(s), frequent falls, headache(s), lethargy or malaise Eyes Eyes: Denies change in eye color, decreased night vision, discharge from eye(s), erythema, excessive blinking, exophthalmos or eye pain ENT HEENT: Denies ear discharge, epistaxis, foreign body in nose, halitosis, headache(s) or mouth pain Cardiovascular Cardiovascular: Denies chest pain at rest, claudication, cold extremities, cyanosis, diaphoresis or dyspnea at rest Respiratory/Chest Respiratory/Chest: Denies chest congestion, chest tightness, excessive phlegm production, hemoptysis, hoarseness, inability to speak or nail bed cyanosis Gastrointestinal Gastrointestinal: Denies chewing difficulty, coffee ground emesis, dry heaves, dyspepsia, excessive flatus or fecal incontinence Genitourinary Genitourinary: Denies abdominal discomfort, contractions, difficulty urinating or flank pain Musculoskeletal Musculoskeletal: Reports extremity pain; Denies difficulty walking, joint stiffness, muscle cramps, muscle spasms, muscle weakness, tingling or tremors Integumentary Integumentary: Reports erythema, skin swelling and wounds; Denies alopecia or jaundice Neurologic Neurologic: Denies abnormal movements, abnormal speech, behavior changes, convulsions, disequilibrium, lack of coordination or memory loss Psychiatric Psychiatric: Denies auditory hallucinations, behavioral changes, difficulty concentrating, hallucinations, panic attacks or paranoia Endocrine Endocrinology: Denies change in body appearance, deepening of the voice, excessive sweating, heat intolerance or increase in ring/shoe/hat size Hematologic/Lymphatic Hematologic/Lymphatic: Denies easy bleeding or easy bruising Allergic/Immunologic Allergic/Immunologic: Denies itchy eyes, lip swelling, rhinitis, throat swelling, tongue swelling or hives Vital Signs Vital Signs Vital Signs: 07/03/25 10:19 Temperature 96.7 F L Temperature Source Temporal Pulse Rate 75 Respiratory Rate 18 Blood Pressure 159/94 H Blood Pressure Mean 115 Blood Pressure Source Monitor Blood Pressure Position Sitting Blood Pressure Location Left Forearm Oxygen Delivery Method Room Air Weight Weight: 197 lb Body Mass Index (BMI) 31.8 Physical Exam Const alert, oriented x3 and no apparent distress General Appearance: cooperative and comfortable HEENT normocephalic and head/scalp atraumatic Eyes EOMs intact bilaterally General Eye: normal appearance of both eyes Neck full ROM and supple General: normal visual inspection Resp normal respiratory effort and normal air movement Effort and Inspection: able to speak in complete sentences Cardio regular rate, regular rhythm, S1 normal heart sound and S2 normal heart sound GI soft to palpation and non-tender Extremity General Extremity: edema Skin General Skin Exam: erythema Wounds: wounds noted Neuro oriented x3, CN's II-XII intact bilaterally, moves all extremities and no focal motor deficits Psych mental status grossly normal, thought process normal, cooperative and affect normal Debridement Note Debridement Note Post-Debridement Measurements and Additional Note: Post-Debridement Measurements/Treatment - Nurse 1 - General Ulcer Assessment Start: 07/03/25 10:19 Freq: Status: Active Protocol: MACKENZIE Activity Type Activity Date Activity User E-sign Co-sign Detail Recorded Client Recorded Date Recorded By Document 07/03/25 10:19 ELIZABETH [id number] 07/03/25 10:34 07/03/25 10:19 - Today's Visit Information Type of service Initial Visit Arrival Mode Ambulatory Patient Identification Verified (Name & Yes ) Height and Weight Height 5 ft 6 in Weight 197 lb Weight in Pounds 197.0 lbs Body Mass Index (BMI) 31.8 BMI Classification Obese Vital Signs Temperature (97.8 F-99.1 F) 96.7 F L Temperature Source Temporal Pulse Rate (60-100) 75 Pulse Location Monitor Respiratory Rate (12-18) 18 Respiratory rate source Observation Oxygen Delivery Method Room Air Blood Pressure (90/60-120/80) 159/94 H Blood Pressure Mean 115 Source Monitor Position Sitting Blood Pressure Location Left Forearm History Since Last Visit- (Skip if this is Patient's initial visit) Left Footwear Regular Shoe Right Footwear Regular Shoe Pain Scale: 0-10 Numeric Is Patient Pain Free? Yes BLE -Description Burning -Comments PAIN MOSTLY AT NIGHT Lower Extremity Assessment/ Foot Assessment/ Toe Nail Assessment Right -Posterior Tibial Doppler Monophasic -Dorsalis Pedis Doppler Monophasic -Extremity Color Red -Hair Growth on Legs No -Hair Growth on Toes No -Thick No -Discolored No -Deformed No -Improper Length & Hygeine No Left -Posterior Tibial Doppler Monophasic -Dorsalis Pedis Doppler Monophasic -Extremity Color Red, Hyperpigmented, Hemosiderin -Hair Growth on Legs No -Hair Growth on Toes No -Thick No -Discolored No -Deformed No -Improper Length & Hygeine No Communication Assessment Preferred language [facility] Required No Able to Read Yes Able to Write Yes Communication Tools None Right Hearing Abillity Normal Left Hearing Abillity Normal Visual Assistive Devices Glasses Teaching Assessment Preferences Verbal Barriers to Learning None Readiness To Learn Excellent Willingness to Engage in Self Management High Activies Readiness to Engage in Self Management High Activities Anxiety Level Calm Cooperation Cooperative Perception Coherent Interest in Health Problem Asks Questions Education Importance Acknowledges Need Does Patient Smoke tobacco or other No substances Is Patient Diabetic No WC - Nurse 1 - General Ulcer Measurement Start: 07/03/25 10:19 Freq: Status: Active Protocol: Activity Type Activity Date Activity User E-sign Co-sign Detail Recorded Client Recorded Date Recorded By Document 07/03/25 10:19 ELIZABETH [id number] 07/03/25 10:34 KW 07/03/25 10:19 Wound Center Nurse 1 Right Calf (cm) 38.5 Right Ankle (cm) 22.5 Left Calf (cm) 40.5 Left Ankle (cm) 25 WC - Nurse 2 - General Ulcer CM Notes Start: 07/03/25 10:19 Freq: Status: Active Protocol: Activity Type Activity Date Activity User E-sign Co-sign Detail Recorded Client Recorded Date Recorded By Document 07/03/25 10:46 GM [id number] 07/03/25 10:49 GM 07/03/25 10:46 Pain Scale: 0-10 Numeric Is Patient Pain Free? Yes Charges/Coding Visit Charges Office Visits / Consults: [id number] OV L3 New 30min Assessment/Plan Assessment/Plan (1) Chronic venous insufficiency of lower extremity: CODE(S): I87.2 - Venous insufficiency (chronic) (peripheral) (2) Ulcer of extremity due to chronic venous insufficiency: CODE(S): L98.499 - Non-pressure chronic ulcer of skin of other sites with unspecified severity; I87.2 - Venous insufficiency (chronic) (peripheral) (3) Chronic stasis dermatitis: CODE(S): I87.2 - Venous insufficiency (chronic) (peripheral) (4) Obesity (BMI 30-39.9): CODE(S): E66.9 - Obesity, unspecified PLAN: Plan No debridement completed today. Superficial areas of skin breakdown/ulceration and significant erythema. Ongoing concern since November however, chronic history of venous insufficiency status post vein stripping, 2 years ago. Last saw her vascular surgeon at that time. She states that she has been wearing her compression however it appears that her compression is old and it is at 20 to 30 mmHg. Due to the nature of her job, on her feet/sitting a lot through the day. Lengthy discussion had with patient, current concerns likely due to venous insufficiency and she will benefit from reevaluation by her vascular surgeon. Adequate compression irrespective of need for procedure also discussed, she voiced understanding. For now, switch to Unna boots to both lower extremity, come in on Monday for a nurse visit and change. Leg elevation also very strongly recommended, she voiced understanding. She was advised to speak with her vascular surgeon about the possibility of getting a lymphedema pump. She was also advised to call the facility if she notes worsening pain or tightness with the Unna boots, she voiced understanding. Currently on diuretics being prescribed by her PCP, she states that she has had no recent labs, she was advised to speak with her PCP about updated labs. Increased dietary potassium intake while on Lasix discussed, she voiced understanding. Her questions were answered, she was advised to let us know if she had any further questions or concerns. Follow-up on Monday for a nurse visit and in a week with me. This note was generated with [employer] dictation software. It may contain incorrect words, spelling, and punctuation that were not noted in checking the note before signing.
--- NOTE | 2025-07-04 08:48 | WC ---
PHOTO-BLE 07/03/25
[2025-07-07 11:43] VITALS: BP 133/79; PULSE 59; RESP 18; BMI 31.8
[2025-07-10 09:44] VITALS: BP 132/87; PULSE 57; RESP 18; TEMP 36.4; BMI 31.8
--- NOTE | 2025-07-10 10:16 | PN.PCM_ITS ---
History of Present Illness Date of Service: 07/10/25 Chief Complaint: Chronic Leg Rash and Swelling History of Wound: Ms. Thornton is a 59-year-old referred to the wound center due to chronic predominantly left lower extremity drainage and swelling. She reports a history of chronic venous insufficiency status post vein stripping 2 years ago. Had seen a vascular surgeon in [place]. In November, noted increased redness, swelling and drainage. She was seen by her primary care physician and over the course of the months, has been prescribed prednisone, topical steroid and Lasix with minimal improvement. She states that she wears her compression on most days. Current compression pressure is 20 to 30 mmHg. Has had it for a while. 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 Denies any history of diabetes or tobacco use. Feels well otherwise. Progress of Wound: Tolerated Unna boots to both lower extremities. Significant improvement in erythema. She states that she noted some drainage but overall, no acute concerns. Objective Data Objective Data Vital Signs: Vital Signs Temp Pulse Resp BP O2 Del Method 97.5 F L 57 L 18 132/87 H Room Air 07/10/25 09:44 07/10/25 09:44 07/10/25 09:44 07/10/25 09:44 07/07/25 11:43 Oxygen Delivery Method Room Air Weight: 197 lb Body Mass Index (BMI) 31.8 Charges/Coding Visit Charges Office Visits / Consults: 33215 OV L3 Est 20min Physical Exam Const alert, oriented x3 and no apparent distress General Appearance: cooperative and comfortable HEENT normocephalic and head/scalp atraumatic Eyes EOMs intact bilaterally General Eye: normal appearance of both eyes Neck full ROM and supple General: normal visual inspection Resp normal respiratory effort Effort and Inspection: able to speak in complete sentences Extremity General Extremity: edema Skin General Skin Exam: erythema Wounds: wounds noted Neuro oriented x3, CN's II-XII intact bilaterally, moves all extremities and no focal motor deficits Psych mental status grossly normal, thought process normal, cooperative and affect normal Debridement Note Debridement Note Post-Debridement Measurements and Additional Note: Post-Debridement Measurements/Treatment JORDAN - Nurse 1 - General Ulcer Assessment Start: 07/03/25 10:19 Freq: Status: Active Protocol: MACKENZIE Activity Type Activity Date Activity User E-sign Co-sign Detail Recorded Client Recorded Date Recorded By Document 07/03/25 10:19 KW [id number] 07/03/25 10:34 KW Document 07/07/25 11:43 KW [id number] 07/07/25 11:52 KW Document 07/10/25 09:44 RB [id number] 07/10/25 09:46 RB 07/03/25 07/07/25 07/10/25 10:19 11:43 09:44 WC - Today's Visit Information Type of service Initial Visit Nurse-only Follow-up Visit Visit (Physician/TELEPHONE CLAIMS REPRESENTATIVE ) Arrival Mode Ambulatory Ambulatory Ambulatory Transfer Assistance None Patient Identification Verified (Name & Yes Yes Yes ) Patient Requires Transmission-Based No Precautions Height and Weight Height 5 ft 6 in Weight 197 lb Weight in Pounds 197.0 lbs Body Mass Index (BMI) 31.8 31.8 31.8 BMI Classification Obese Obese Obese Vital Signs Temperature (97.8 F-99.1 F) 96.7 F L 97.5 F L Temperature Source Temporal Temporal Temporal Pulse Rate (60-100) 75 59 L 57 L Pulse Location Monitor Monitor Monitor Respiratory Rate (12-18) 18 18 18 Respiratory rate source Observation Observation Observation Oxygen Delivery Method Room Air Room Air Blood Pressure (90/60-120/80) 159/94 H 133/79 H 132/87 H Blood Pressure Mean (mm Hg) 115 97 102 Source Monitor Monitor Monitor Position Sitting Sitting Semi-Fowlers Blood Pressure Location Left Forearm Left Arm Right Arm History Since Last Visit- (Skip if this is Patient's initial visit) Have you changed medications since your No No last visit? Any new allergies or adverse reactions No No Had a fall/change in ADL's that may No No increase risk of falls Signs or symptoms of abuse and/or No No neglect since last visit Have you been in the hospital since your No No last visit? Has dressing in place as prescribed Yes Yes Has compression in place as prescribed Yes Yes Has offloadiing in place as prescribed N/A N/A Experienced any changes in pain level or No No management Left Footwear Regular Shoe Regular Shoe Regular Shoe Right Footwear Regular Shoe Regular Shoe Regular Shoe Pain Scale: 0-10 Numeric Is Patient Pain Free? Yes Yes Yes BLE -Description Burning -Comments PAIN MOSTLY AT NIGHT Lower Extremity Assessment/ Foot Assessment/ Toe Nail Assessment Right -Posterior Tibial Doppler Monophasic -Dorsalis Pedis Doppler Monophasic -Extremity Color Red -Hair Growth on Legs No -Hair Growth on Toes No -Thick No -Discolored No -Deformed No -Improper Length & Hygeine No Left -Posterior Tibial Doppler Monophasic -Dorsalis Pedis Doppler Monophasic -Extremity Color Red, Hyperpigmented, Hemosiderin -Hair Growth on Legs No -Hair Growth on Toes No -Thick No -Discolored No -Deformed No -Improper Length & Hygeine No Communication Assessment Preferred language Vietnamese Dinking Machine Operator Required No Able to Read Yes Able to Write Yes Communication Tools None Right Hearing Abillity Normal Left Hearing Abillity Normal Visual Assistive Devices Glasses Teaching Assessment Preferences Verbal Barriers to Learning None Readiness To Learn Excellent Willingness to Engage in Self Management High Activies Readiness to Engage in Self Management High Activities Anxiety Level Calm Cooperation Cooperative Perception Coherent Interest in Health Problem Asks Questions Education Importance Acknowledges Need Does Patient Smoke tobacco or other No substances Is Patient Diabetic No WC - Nurse 1 - General Ulcer Measurement Start: 07/03/25 10:19 Freq: Status: Active Protocol: Activity Type Activity Date Activity User E-sign Co-sign Detail Recorded Client Recorded Date Recorded By Document 07/03/25 10:19 KW [id number] 07/03/25 10:34 KW Document 07/07/25 11:43 KW [id number] 07/07/25 11:52 KW Document 07/10/25 09:44 RB [id number] 07/10/25 09:46 RB 07/03/25 07/07/25 07/10/25 10:19 11:43 09:44 Wound Center Nurse 1 Lower Limb Edema Present Yes Right Calf (cm) 38.5 38.5 40 Right Ankle (cm) 22.5 22.5 22.2 Left Calf (cm) 40.5 38.5 40.1 Left Ankle (cm) 25 23.5 23.5 - Nurse 2 - General Ulcer CM Notes Start: 07/03/25 10:19 Freq: Status: Active Protocol: Activity Type Activity Date Activity User E-sign Co-sign Detail Recorded Client Recorded Date Recorded By Document 07/03/25 10:46 [id number] 07/03/25 10:49 Document 07/10/25 10:05 [id number] 07/10/25 10:08 07/03/25 07/10/25 10:46 10:05 Pain Scale: 0-10 Numeric Is Patient Pain Free? Yes Yes - Nurse 3 - General Ulcer D/C NN Start: 07/03/25 10:19 Freq: Status: Active Protocol: Activity Type Activity Date Activity User E-sign Co-sign Detail Recorded Client Recorded Date Recorded By Document 07/03/25 11:11 KW [id number] 07/03/25 11:11 KW Document 07/07/25 11:43 KW [id number] 07/07/25 11:52 KW 07/03/25 07/07/25 11:11 11:43 Wound Care Center Nurse 3 BLE -Multi-Layered Wrap Application Unna Boot - Unna Boot - Bilateral Bilateral -Other washed prior to change -Unna- Bilat (Qty applied) 1 1 Pain Scale: 0-10 Numeric Is Patient Pain Free? Yes Yes WC - Visit Discharge Discharge Condition Stable Stable Ambulatory Status Ambulatory Ambulatory Transportation Private Auto Private Auto Medication Reconcilliation completed & No No provided to patient/care provider Clinical Summary of Care Provided Yes Yes Assessment/Plan Assessment/Plan (1) Chronic venous insufficiency of lower extremity: CODE(S): I87.2 - Venous insufficiency (chronic) (peripheral) (2) Ulcer of extremity due to chronic venous insufficiency: CODE(S): L98.499 - Non-pressure chronic ulcer of skin of other sites with unspecified severity; I87.2 - Venous insufficiency (chronic) (peripheral) (3) Chronic stasis dermatitis: CODE(S): I87.2 - Venous insufficiency (chronic) (peripheral) (4) Obesity (BMI 30-39.9): CODE(S): E66.9 - Obesity, unspecified PLAN: Plan No debridement completed today. No acute concerns reported today. Significant improvement in erythema appreciated today. Areas of ulceration more defined. She reports drainage. Aquacel extra to open areas and continue Unna boots to both lower extremities. Coming on Monday for nurse visit/change. Prescription given for compression stockings, 30 to 40 mmHg. Leg elevation also very strongly recommended, she voiced understanding. She was advised to speak with h er vascular surgeon about the possibility of getting a lymphedema pump. She was also advised to call the facility if she notes worsening pain or tightness with the Unna boots, she voiced understanding. Her questions were answered, she was advised to let us know if she had any further questions or concerns. Follow-up on Monday for a nurse visit and in a week with me. This note was generated with [employer] dictation software. It may contain incorrect words, spelling, and punctuation that were not noted in checking the note before signing.
[2025-07-14 08:30] VITALS: BP 122/67; PULSE 53; RESP 18; TEMP 36.1; BMI 31.8
[2025-07-17 09:00] VITALS: BMI 31.8
[2025-07-17 09:16] VITALS: BP 122/72; PULSE 59; RESP 18; TEMP 36.6; BMI 31.8
--- NOTE | 2025-07-17 10:48 | PN.PCM_ITS ---
History of Present Illness Date of Service: 07/17/25 Chief Complaint: Chronic Leg Rash and Swelling History of Wound: Ms. Thornton is a 59-year-old referred to the wound center due to chronic predominantly left lower extremity drainage and swelling. She reports a history of chronic venous insufficiency status post vein stripping 2 years ago. Had seen a vascular surgeon in [place]. In November, noted increased redness, swelling and drainage. She was seen by her primary care physician and over the course of the months, has been prescribed prednisone, topical steroid and Lasix with minimal improvement. She states that she wears her compression on most days. Current compression pressure is 20 to 30 mmHg. Has had it for a while. 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 Denies any history of diabetes or tobacco use. Feels well otherwise. Progress of Wound: Much better improvement noted this week. No acute concerns reported, minimal area left. Getting tired of using Unna boots but otherwise, no concerns reported. Objective Data Objective Data Vital Signs: Vital Signs Temp Pulse Resp BP O2 Del Method 98 F 59 L 18 122/72 H Room Air 07/17/25 09:16 07/17/25 09:16 07/17/25 09:16 07/17/25 09:16 07/17/25 09:16 Oxygen Delivery Method Room Air Weight: 197 lb Body Mass Index (BMI) 31.8 Charges/Coding Visit Charges Office Visits / Consults: 75660 OV L3 Est 20min Physical Exam Const alert, oriented x3 and no apparent distress General Appearance: cooperative and comfortable HEENT normocephalic and head/scalp atraumatic Eyes EOMs intact bilaterally General Eye: normal appearance of both eyes Neck full ROM and supple General: normal visual inspection Resp normal respiratory effort Effort and Inspection: able to speak in complete sentences Extremity General Extremity: edema Skin General Skin Exam: erythema Wounds: wounds noted Neuro oriented x3, CN's II-XII intact bilaterally, moves all extremities and no focal motor deficits Psych mental status grossly normal, thought process normal, cooperative and affect normal Debridement Note Debridement Note Post-Debridement Measurements and Additional Note: Post-Debridement Measurements/Treatment JORDAN - Nurse 1 - General Ulcer Assessment Start: 07/03/25 10:19 Freq: Status: Active Protocol: MACKENZIE Activity Type Activity Date Activity User E-sign Co-sign Detail Recorded Client Recorded Date Recorded By Document 07/03/25 10:19 KW [id number] 07/03/25 10:34 KW Document 07/07/25 11:43 KW [id number] 07/07/25 11:52 KW Document 07/10/25 09:44 RB [id number] 07/10/25 09:46 RB Document 07/14/25 08:30 KW [id number] 07/14/25 09:02 KW Document 07/17/25 09:00 MT [id number] 07/17/25 09:15 MT Document 07/17/25 09:16 MT [id number] 07/17/25 09:17 MT 07/03/25 07/07/25 07/10/25 10:19 11:43 09:44 WC - Today's Visit Information Type of service Initial Visit Nurse-only Follow-up Visit Visit (Physician/BARYTES GRINDER ) Arrival Mode Ambulatory Ambulatory Ambulatory Transfer Assistance None Accompanied by Patient Identification Verified (Name & Yes Yes Yes ) Patient Requires Transmission-Based No Precautions Safety Precautions Height and Weight Height 5 ft 6 in Weight 197 lb Weight in Pounds 197.0 lbs Body Mass Index (BMI) 31.8 31.8 31.8 BMI Classification Obese Obese Obese Vital Signs Temperature (97.8 F-99.1 F) 96.7 F L 97.5 F L Temperature Source Temporal Temporal Temporal Pulse Rate (60-100) 75 59 L 57 L Pulse Location Monitor Monitor Monitor Respiratory Rate (12-18) 18 18 18 Respiratory rate source Observation Observation Observation Oxygen Delivery Method Room Air Room Air Blood Pressure (90/60-120/80) 159/94 H 133/79 H 132/87 H Blood Pressure Mean (mm Hg) 115 97 102 Source Monitor Monitor Monitor Position Sitting Sitting Semi-Fowlers Blood Pressure Location Left Forearm Left Arm Right Arm History Since Last Visit- (Skip if this is Patient's initial visit) Have you changed medications since your No No last visit? Any new allergies or adverse reactions No No Had a fall/change in ADL's that may No No increase risk of falls Signs or symptoms of abuse and/or No No neglect since last visit Have you been in the hospital since your No No last visit? Has dressing in place as prescribed Yes Yes Has compression in place as prescribed Yes Yes Has offloadiing in place as prescribed N/A N/A Experienced any changes in pain level or No No management Left Footwear Regular Shoe Regular Shoe Regular Shoe Right Footwear Regular Shoe Regular Shoe Regular Shoe Pain Scale: 0-10 Numeric Is Patient Pain Free? Yes Yes Yes BLE -Description Burning -Comments PAIN MOSTLY AT NIGHT Lower Extremity Assessment/ Foot Assessment/ Toe Nail Assessment Right -Posterior Tibial Doppler Monophasic -Dorsalis Pedis Doppler Monophasic -Extremity Color Red -Hair Growth on Legs No -Hair Growth on Toes No -Thick No -Discolored No -Deformed No -Improper Length & Hygeine No Left -Posterior Tibial Doppler Monophasic -Dorsalis Pedis Doppler Monophasic -Extremity Color Red, Hyperpigmented, Hemosiderin -Hair Growth on Legs No -Hair Growth on Toes No -Thick No -Discolored No -Deformed No -Improper Length & Hygeine No Communication Assessment Preferred language Citizen Of [place] Wares Sorter Required No Able to Read Yes Able to Write Yes Communication Tools None Right Hearing Abillity Normal Left Hearing Abillity Normal Visual Assistive Devices Glasses Teaching Assessment Preferences Verbal Barriers to Learning None Readiness To Learn Excellent Willingness to Engage in Self Management High Activies Readiness to Engage in Self Management High Activities Anxiety Level Calm Cooperation Cooperative Perception Coherent Interest in Health Problem Asks Questions Education Importance Acknowledges Need Does Patient Smoke tobacco or other No substances Is Patient Diabetic No 07/14/25 07/17/25 07/17/25 08:30 09:00 09:16 WC - Today's Visit Information Type of service Nurse-only Visit Arrival Mode Ambulatory Ambulatory Transfer Assistance Accompanied by self Patient Identification Verified (Name & Yes Yes ) Patient Requires Transmission-Based Precautions Safety Precautions Fall Prevention Height and Weight Height Weight Weight in Pounds Body Mass Index (BMI) 31.8 31.8 31.8 BMI Classification Obese Obese Obese Vital Signs Temperature (97.8 F-99.1 F) 96.9 F L 98 F Temperature Source Temporal Temporal Pulse Rate (60-100) 53 L 59 L Pulse Location Monitor Monitor Respiratory Rate (12-18) 18 18 Respiratory rate source Observation Observation Oxygen Delivery Method Room Air Room Air Blood Pressure (90/60-120/80) 122/67 H 122/72 H Blood Pressure Mean (mm Hg) 85 88 Source Monitor Monitor Position Sitting Sitting Blood Pressure Location Right Arm Right Arm History Since Last Visit- (Skip if this is Patient's initial visit) Have you changed medications since your No last visit? Any new allergies or adverse reactions No Had a fall/change in ADL's that may No increase risk of falls Signs or symptoms of abuse and/or No neglect since last visit Have you been in the hospital since your No last visit? Has dressing in place as prescribed Yes Yes Has compression in place as prescribed Yes Yes Has offloadiing in place as prescribed N/A Yes Experienced any changes in pain level or No Yes management Left Footwear Regular Shoe Regular Shoe Right Footwear Regular Shoe Regular Shoe Pain Scale: 0-10 Numeric Is Patient Pain Free? 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 Able to Read Able to Write Communication Tools Right Hearing Abillity Left Hearing Abillity Visual Assistive Devices Teaching Assessment Preferences Barriers to Learning Readiness To Learn Willingness to Engage in Self Management Activies Readiness to Engage in Self Management Activities Anxiety Level Cooperation Perception Interest in Health Problem Education Importance Does Patient Smoke tobacco or other substances Is Patient Diabetic WC - Nurse 1 - General Ulcer Measurement Start: 07/03/25 10:19 Freq: Status: Active Protocol: Activity Type Activity Date Activity User E-sign Co-sign Detail Recorded Client Recorded Date Recorded By Document 07/03/25 10:19 KW [id number] 07/03/25 10:34 KW Document 07/07/25 11:43 KW [id number] 07/07/25 11:52 KW Document 07/10/25 09:44 RB [id number] 07/10/25 09:46 RB Document 07/14/25 09:02 KW [id number] 07/14/25 09:02 KW Document 07/17/25 09:00 MT [id number] 07/17/25 09:15 MT 07/03/25 07/07/25 07/10/25 10:19 11:43 09:44 Wound Center Nurse 1 LLE -Current Size (cm) - Length -Current Size (cm) - Width -Current Size (cm) - Depth -Total Square Cm -Date of Last Picture (Recall this field) -Photo Taken -Tunneling -Undermining/Tunneling -Circular Undermining -Exudate Amt -Exudate Type -Wound Margin -Granulation Amt -Granulation Quality -Slough/Fibrin -Necrosis Amt -Necrotic Tissue Type -Texture (Genoveva-wound Skin Appearance) -Moisture (Genoveva-wound Skin Appearance) -Color (Genoveva-wound Skin Appearance) -Temperature (Genoveva-wound Skin Appearance) -Tenderness on Palpation (Genoveva-wound Skin Appearance) -Ulcer Cleansing -Foul Odor after Cleansing -Anesthetic Used Lower Limb Edema Present Yes Right Calf (cm) 38.5 38.5 40 Right Ankle (cm) 22.5 22.5 22.2 Left Calf (cm) 40.5 38.5 40.1 Left Ankle (cm) 25 23.5 23.5 07/14/25 07/17/25 09:02 09:00 Wound Center Nurse 1 LLE -Current Size (cm) - Length 3 -Current Size (cm) - Width 2.5 -Current Size (cm) - Depth 0.1 -Total Square Cm 7.5 -Date of Last Picture (Recall this 07/17/25 field) -Photo Taken Yes -Tunneling No -Undermining/Tunneling No -Circular Undermining No -Exudate Amt Medium -Exudate Type Serous -Wound Margin Flat & Intact -Granulation Amt Large (67-100%) -Granulation Quality Pale,Hunker,Red -Slough/Fibrin No -Necrosis Amt Small (1-33%) -Necrotic Tissue Type Adherent Slough -Texture (Genoveva-wound Skin Appearance) Assessed -Moisture (Genoveva-wound Skin Appearance) Assessed -Color (Genoveva-wound Skin Appearance) Assessed -Temperature (Genoveva-wound Skin No Abnormality Appearance) (Pt Warm) -Tenderness on Palpation (Genoveva-wound No Skin Appearance) -Ulcer Cleansing Soap and Water -Foul Odor after Cleansing No -Anesthetic Used 5% Lidocaine Gel Lower Limb Edema Present Right Calf (cm) 36.5 Right Ankle (cm) 22 Left Calf (cm) 37 39 Left Ankle (cm) 22.5 24 WC - Nurse 2 - General Ulcer CM Notes Start: 07/03/25 10:19 Freq: Status: Active Protocol: Activity Type Activity Date Activity User E-sign Co-sign Detail Recorded Client Recorded Date Recorded By Document 07/03/25 10:46 [id number] 07/03/25 10:49 GM Document 07/10/25 10:05 GM [id number] 07/10/25 10:08 GM Document 07/17/25 09:33 GM [id number] 07/17/25 09:34 GM 07/03/25 07/10/25 07/17/25 10:46 10:05 09:33 Wound Center Nurse 2 LLE -Time 09:34 -Correct Patient Yes -Correct Side, Site, Position Yes -Correct Procedure No -Procedure Performed No -Tunneling No -Undermining/Tunneling No -Circular Undermining No -Wound/Ulcer Outcome Not Healed -Ulcer Cleansing Not Cleansed -Foul Odor after Cleansing No -Bioengineered Tissue No -Bleeding Controlled with NA Pain Scale: 0-10 Numeric Is Patient Pain Free? Yes Yes Yes - Nurse 3 - General Ulcer D/C NN Start: 07/03/25 10:19 Freq: Status: Active Protocol: Activity Type Activity Date Activity User E-sign Co-sign Detail Recorded Client Recorded Date Recorded By Document 07/03/25 11:11 KW [id number] 07/03/25 11:11 KW Document 07/07/25 11:43 KW [id number] 07/07/25 11:52 KW Document 07/10/25 10:21 KW [id number] 07/10/25 10:23 KW Document 07/14/25 08:30 KW [id number] 07/14/25 09:02 KW Document 07/17/25 10:08 MT [id number] 07/17/25 10:11 SD 07/03/25 07/07/25 07/10/25 11:11 11:43 10:21 Wound Care Center Nurse 3 LLE -Ulcer Cleansing -Primary Dressing Applied Aquacel Extra, Optilok 5x5 1/2 -Other Dressing -Aquacel Extra 1 -Optilok 5x5 1/2 1 LLE -Multi-Layered Wrap Application -Unna- Left (Qty applied) BLE -Multi-Layered Wrap Application Unna Boot - Unna Boot - Unna Boot - Bilateral Bilateral Bilateral -Other washed prior to change -Unna- Bilat (Qty applied) 1 1 1 Pain Scale: 0-10 Numeric Is Patient Pain Free? Yes Yes Yes - Visit Discharge Discharge Condition Stable Stable Stable Ambulatory Status Ambulatory Ambulatory Ambulatory Transportation Private Auto Private Auto Private Auto Medication Reconcilliation completed & No No No provided to patient/care provider Clinical Summary of Care Provided Yes Yes Yes 07/14/25 07/17/25 08:30 10:08 Wound Care Center Nurse 3 LLE -Ulcer Cleansing Soap and Water Soap and Water -Primary Dressing Applied Aquacel Extra, Optilok 5x5 1/2 Optilok 5x5 1/2 -Other Dressing unna -Aquacel Extra 1 -Optilok 5x5 1/2 1 1 LLE -Multi-Layered Wrap Application Unna Boot - Left -Unna- Left (Qty applied) 1 BLE -Multi-Layered Wrap Application Unna Boot - Bilateral -Other -Unna- Bilat (Qty applied) 1 Pain Scale: 0-10 Numeric Is Patient Pain Free? Yes Yes WC - Visit Discharge Discharge Condition Stable Stable Ambulatory Status Ambulatory Ambulatory Transportation Private Auto Private Auto Medication Reconcilliation completed & No No provided to patient/care provider Clinical Summary of Care Provided Yes Yes Assessment/Plan Assessment/Plan (1) Chronic venous insufficiency of lower extremity: CODE(S): I87.2 - Venous insufficiency (chronic) (peripheral) (2) Ulcer of extremity due to chronic venous insufficiency: CODE(S): L98.499 - Non-pressure chronic ulcer of skin of other sites with unspecified severity; I87.2 - Venous insufficiency (chronic) (peripheral) (3) Chronic stasis dermatitis: CODE(S): I87.2 - Venous insufficiency (chronic) (peripheral) (4) Obesity (BMI 30-39.9): CODE(S): E66.9 - Obesity, unspecified PLAN: Plan No debridement completed today. As above, significant improvement noted this week. No acute concerns reported at this time. Getting tired of using Unna boots, she states that she now has her compression stockings ordered at her last visit. Continue Aquacel extra to open areas and continue Unna boots to left lower extremity only. Leave on for a week. Compression stocking, 30 to 40 mmHg to right lower extremity. Continue leg elevation and exercise as tolerated. She has been advised to speak with her vascular surgeon about the possibility of getting a lymphedema pump. She was also advised to call the facility if she notes worsening pain or tightness with the Unna boots, she voiced understanding. Her questions were answered, she was advised to let us know if she had any further questions or concerns. Follow-up in a week due to holiday on Monday. This note was generated with ScubaTribe[employer] software. It may contain incorrect words, spelling, and punctuation that were not noted in checking the note before signing.
--- NOTE | 2025-07-18 08:42 | WC ---
PHOTO-LLE 07/17/25
== END 2025-07-20 23:59 | disposition home or self-care (01) ==
LOC: WC 09:15
PROVIDERS: PCP Family Medicine; Referring Provider Family Medicine; Visit Provider Internal Medicine
DX: I87.2 Venous insufficiency (chronic) (peripheral) (principal); L98.491 Non-pressure chronic ulcer of skin of other sites limited to breakdown of skin; E66.9 Obesity, unspecified; Z68.31 Body mass index [BMI] 31.0-31.9, adult
CPT/HCPCS: 29580; 99203; 99213; G0463

== ENCOUNTER 2025-07-24 08:55 | Outpatient (RCR) | payer OTHER, SELFPAY ==
[2025-07-24 09:10] VITALS: BP 132/77; PULSE 63; RESP 18; TEMP 35.7
--- NOTE | 2025-07-24 12:51 | PCM.WC.PN ---
History of Present Illness Date of Service: 07/24/25 Chief Complaint: Chronic Leg Rash and Swelling History of Wound: Ms. Thornton is a 59-year-old referred to the wound center due to chronic predominantly left lower extremity drainage and swelling. She reports a history of chronic venous insufficiency status post vein stripping 2 years ago. Had seen a vascular surgeon in [place]. In November, noted increased redness, swelling and drainage. She was seen by her primary care physician and over the course of the months, has been prescribed prednisone, topical steroid and Lasix with minimal improvement. She states that she wears her compression on most days. Current compression pressure is 20 to 30 mmHg. Has had it for a while. 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 Denies any history of diabetes or tobacco use. Feels well otherwise. Progress of Wound: Healed. No new concerns reported at this time. Objective Data Objective Data Vital Signs: Vital Signs Temp Pulse Resp BP O2 Del Method 96.3 F L 63 18 132/77 H Room Air 07/24/25 09:10 07/24/25 09:10 07/24/25 09:10 07/24/25 09:10 07/24/25 09:10 Oxygen Delivery Method Room Air Charges/Coding Visit Charges Office Visits / Consults: 55739 OV L3 Est 20min Physical Exam Const alert, oriented x3 and no apparent distress General Appearance: cooperative and comfortable HEENT normocephalic and head/scalp atraumatic Eyes EOMs intact bilaterally General Eye: normal appearance of both eyes Neck full ROM and supple General: normal visual inspection Resp normal respiratory effort Effort and Inspection: able to speak in complete sentences Extremity General Extremity: edema Skin General Skin Exam: erythema Neuro oriented x3, CN's II-XII intact bilaterally, moves all extremities and no focal motor deficits Psych mental status grossly normal, thought process normal, cooperative and affect normal Debridement Note Debridement Note Post-Debridement Measurements and Additional Note: Post-Debridement Measurements/Treatment - Nurse 1 - General Ulcer Assessment Start: 07/24/25 09:10 Freq: Status: Active Protocol: [email or web address] Activity Type Activity Date Activity User E-sign Co-sign Detail Recorded Client Recorded Date Recorded By Document 07/24/25 09:10 ELIZABETH [id number] 07/24/25 09:19 ELIZABETH 07/24/25 09:10 - Today's Visit Information Type of service Follow-up Visit (Physician/DIRECTOR OF INSTITUTIONAL RESEARCH ) Arrival Mode Ambulatory Vital Signs Temperature (97.8 F-99.1 F) 96.3 F L Temperature Source Temporal Pulse Rate (60-100) 63 Pulse Location Monitor Respiratory Rate (12-18) 18 Respiratory rate source Observation Oxygen Delivery Method Room Air Blood Pressure (90/60-120/80) 132/77 H Blood Pressure Mean (mm Hg) 95 Source Monitor Position Semi-Fowlers Blood Pressure Location Left Arm History Since Last Visit- (Skip if this is Patient's initial visit) Have you changed medications since your No last visit? Any new allergies or adverse reactions No Had a fall/change in ADL's that may No increase risk of falls Signs or symptoms of abuse and/or No neglect since last visit Have you been in the hospital since your No last visit? Has dressing in place as prescribed Yes Has compression in place as prescribed Yes Has offloadiing in place as prescribed N/A Experienced any changes in pain level or No management Left Footwear Regular Shoe Right Footwear Regular Shoe Pain Scale: 0-10 Numeric Is Patient Pain Free? Yes - Nurse 1 - General Ulcer Measurement Start: 07/24/25 09:10 Freq: Status: Active Protocol: Activity Type Activity Date Activity User E-sign Co-sign Detail Recorded Client Recorded Date Recorded By Document 07/24/25 09:10 KW [id number] 07/24/25 09:19 KW 07/24/25 09:10 Wound Center Nurse 1 Right Calf (cm) 39.5 Right Ankle (cm) 22.5 Left Calf (cm) 40 Left Ankle (cm) 24 - Nurse 2 - General Ulcer CM Notes Start: 07/24/25 09:10 Freq: Status: Active Protocol: Activity Type Activity Date Activity User E-sign Co-sign Detail Recorded Client Recorded Date Recorded By Document 07/24/25 09:39 [id number] 07/24/25 09:42 07/24/25 09:39 Wound Center Nurse 2 LLE -Time 09:39 -Correct Patient Yes -Correct Side, Site, Position Yes -Correct Procedure No -Procedure Performed No -Tunneling No -Undermining/Tunneling No -Circular Undermining No -Wound/Ulcer Outcome Healed- Epithelialized -Ulcer Cleansing Not Cleansed -Foul Odor after Cleansing No -Bioengineered Tissue No -Bleeding Controlled with NA Pain Scale: 0-10 Numeric Is Patient Pain Free? Yes WC - Nurse 3 - General Ulcer D/C NN Start: 07/24/25 09:10 Freq: Status: Active Protocol: Activity Type Activity Date Activity User E-sign Co-sign Detail Recorded Client Recorded Date Recorded By Document 07/24/25 09:45 ELIZABETH [id number] 07/24/25 09:46 KW 07/24/25 09:45 Wound Care Center Nurse 3 LLE -Wound Comment(s) PT DC'D Pain Scale: 0-10 Numeric Is Patient Pain Free? Yes WC - Visit Discharge Discharge Condition Stable Ambulatory Status Ambulatory Transportation Private Auto Medication Reconcilliation completed & No provided to patient/care provider Clinical Summary of Care Provided Yes Assessment/Plan Assessment/Plan (1) Chronic venous insufficiency of lower extremity: CODE(S): I87.2 - Venous insufficiency (chronic) (peripheral) (2) Ulcer of extremity due to chronic venous insufficiency: CODE(S): L98.499 - Non-pressure chronic ulcer of skin of other sites with unspecified severity; I87.2 - Venous insufficiency (chronic) (peripheral) (3) Chronic stasis dermatitis: CODE(S): I87.2 - Venous insufficiency (chronic) (peripheral) (4) Obesity (BMI 30-39.9): CODE(S): E66.9 - Obesity, unspecified PLAN: Plan Healed. No new concerns reported at this time. Very lengthy discussion had with patient about management going forward. Continue compression stocking, 30 to 40 mmHg to both lower extremities.. Continue leg elevation and exercise as tolerated. She states that she has an appointment with her vascular surgeon next week, we discussed possibility for lymphedema pump as well, discuss with vascular. Her questions were answered, she was advised to let us know if she had any further questions or concerns. Discharge from the wound center. This note was generated with [employer]Kiwi dictation software. It may contain incorrect words, spelling, and punctuation that were not noted in checking the note before signing.
== END 2025-08-19 15:45 | disposition home or self-care (01) ==
LOC: WC 08:55
PROVIDERS: PCP Family Medicine; Referring Provider Family Medicine; Visit Provider Internal Medicine
DX: Z09 Encounter for follow-up examination after completed treatment for conditions other than malignant neoplasm (principal); E66.2 Morbid (severe) obesity with alveolar hypoventilation; M79.89 Other specified soft tissue disorders; R21 Rash and other nonspecific skin eruption; I87.2 Venous insufficiency (chronic) (peripheral)
CPT/HCPCS: 99213; G0463